=== PATIENT | female | born 1980 | race Caucasian/White ===

== ENCOUNTER 2020-10-19 21:31 | Emergency (ER) | payer OTHER ==
[~2020-10-19] VITALS: Ht 160 cm; Wt 103.0 kg
--- NOTE | 2020-10-19 22:27 | PHYS DOC ---
Past History Past Medical History: Depression, Other Past Surgical History: TURP Adult General Chief Complaint Chief Complaint: FEVER HPI HPI Patient is a 40-year-old female with a past medical history significant for breast cancer, currently on chemotherapy who presents to the emergency department at the request of her physician for fever. States that she checks her temperature twice a day, and this morning it was normal at the doctor's office and this evening it was 101. States she called her doctor back and was told to come to the emergency department. Denies headache, sore throat, runny nose, chest pain, shortness of breath, cough, abdominal pain, nausea, vomiting, diarrhea, dysuria, urinary frequency or urgency, hematuria or blood in the stool . States she actually feels well. Denies any known ill contacts or recent travel. Review of Systems Review of Systems Review of systems otherwise unremarkable except for noted in HPI. Allergies Allergies Allergies Coded Allergies Type Severity Reaction Last Updated Verified latex Allergy Unknown 03/21/15 No Physical Exam Physical Exam Constitutional: Well developed, well nourished, no acute distress, non-toxic appearance. [] HENT: Normocephalic, atraumatic, bilateral external ears normal, oropharynx moist, no oral exudates, nose normal. [] Eyes: conjunctiva normal, no discharge. [] Neck: Normal range of motion, no tenderness, supple, no stridor. [] Cardiovascular:Heart rate regular rhythm, no murmur [] Lungs & Thorax: Bilateral breath sounds clear to auscultation [] Abdomen: soft, no tenderness, no masses, no pulsatile masses. [] Skin: Warm, dry, no erythema, no rash. [] Back: No tenderness, Extremities: No tenderness, no cyanosis, no clubbing, ROM intact, no edema. [] Neurologic: Alert and oriented X 3, normal motor function, normal sensory function, no focal deficits noted. [] Psychologic: Affect normal, judgement normal, mood normal. [] Current Patient Data Lab Results Laboratory Tests Test 10/19/20 22:35 10/19/20 22:40 White Blood Count 2.1 x10^3/uL (4.0-11.0) Red Blood Count 3.60 x10^6/uL (3.50-5.40) Hemoglobin 10.2 g/dL (12.0-15.5) Hematocrit 30.7 % (36.0-47.0) Mean Corpuscular Volume 85 fL (79-100) Mean Corpuscular Hemoglobin 29 pg (25-35) Mean Corpuscular Hemoglobin Concent 33 g/dL (31-37) Red Cell Distribution Width 14.1 % (11.5-14.5) Platelet Count 239 x10^3/uL (140-400) Neutrophils (%) (Auto) 18 % (31-73) Lymphocytes (%) (Auto) 56 % (24-48) Monocytes (%) (Auto) 23 % (0-9) Eosinophils (%) (Auto) 2 % (0-3) Basophils (%) (Auto) 1 % (0-3) Neutrophils # (Auto) 0.4 x10^3uL (1.8-7.7) Lymphocytes # (Auto) 1.2 x10^3/uL (1.0-4.8) Monocytes # (Auto) 0.5 x10^3/uL (0.0-1.1) Eosinophils # (Auto) 0.0 x10^3/uL (0.0-0.7) Basophils # (Auto) 0.0 x10^3/uL (0.0-0.2) Segmented Neutrophils % 16 % (35-66) Band Neutrophils % 2 % (0-9) Lymphocytes % 57 % (24-48) Atypical Lymphocytes % (Manual) 12 % (0-0) Monocytes % 9 % (0-10) Basophils % 4 % (0-3) Nucleated Red Blood Cells 0 Platelet Estimate Adequate (ADEQUATE) Sodium Level 133 mmol/L (136-145) Potassium Level 3.5 mmol/L (3.5-5.1) Chloride Level 98 mmol/L (98-107) Carbon Dioxide Level 26 mmol/L (21-32) Anion Gap 9 (6-14) Blood Urea Nitrogen 7 mg/dL (7-20) Creatinine 0.7 mg/dL (0.6-1.0) Estimated GFR (Cockcroft-Gault) 92.7 BUN/Creatinine Ratio 10 (6-20) Glucose Level 153 mg/dL (70-99) Lactic Acid Level 1.1 mmol/L (0.4-2.0) Calcium Level 7.7 mg/dL (8.5-10.1) Total Bilirubin 0.8 mg/dL (0.2-1.0) Aspartate Amino Transf (AST/SGOT) 18 U/L (15-37) Alanine Aminotransferase (ALT/SGPT) 42 U/L (14-59) Alkaline Phosphatase 79 U/L (46-116) Total Protein 7.2 g/dL (6.4-8.2) Albumin 3.3 g/dL (3.4-5.0) Albumin/Globulin Ratio 0.8 (1.0-1.7) Urine Collection Type Void Urine Color Yellow Urine Clarity Hazy Urine pH 7.0 Urine Specific [place] 1.010 Urine Protein Neg (NEG-TRACE) Urine Glucose (UA) Neg mg/dL (NEG) Urine Ketones (Stick) Neg mg/dL (NEG) Urine Blood Mod (NEG) Urine Nitrite Neg (NEG) Urine Bilirubin Neg (NEG) Urine Urobilinogen Dipstick 0.2 mg/dL (0.2 mg/dL) Urine Leukocyte Esterase Neg (NEG) Urine RBC 1-2 /HPF (0-2) Urine WBC 0 /HPF (0-4) Urine Squamous Epithelial Cells Occ /LPF Urine Bacteria Few /HPF (0-FEW) EKG EKG [] Radiology/Procedures Radiology/Procedures []FINDINGS: 2 view of chest obtained. Left sided port with tip at the SVC. Cardiac silhouette unremarkable. No definite focal airspace consolidation. Mild degenerative changes spine. IMPRESSION: * No focal airspace consolidation or edema. Electronically signed by: Artis Uribe MD (10/19/2020 11:16 PM) [id number] Heart Score Risk Factors: Risk Factors: DM, Current or recent (<one month) smoker, HTN, HLP, family history of CAD, obesity. Risk Scores: Risk Factors: DM, Current or recent (<one month) smoker, HTN, HLP, family history of CAD, obesity. Course & Med Decision Making Course & Med Decision Making Patient is a 40-year-old female, with breast cancer currently on chemotherapy who presents to the emergency department with fever Vital signs notable for fever and tachycardia. Physical exam noted above. Given Tylenol Laboratory analysis notable for leukopenia but not neutropenic. Chest x-ray not concerning. Urine not concerning. [] Dragon Disclaimer Dragon Disclaimer This electronic medical record was generated, in whole or in part, using a voice recognition dictation system. Departure Departure: Referrals: PCP,SHABANA (PCP) ANNALISA GARCIA MD Oct 19, 2020 22:27
[2020-10-19 22:57] LABS: BASO % 1 % (0-3); EOS % 2 % (0-3); HEMATOCRIT 30.7 % (36.0-47.0); HEMOGLOBIN 10.2 g/dL (12.0-15.5); LYMPH # 1.2 x10^3/uL (1.0-4.8); LYMPH % 56 % (24-48); MEAN CORPUSCULAR HEMOGLOBIN 29 pg (25-35); MEAN CORPUSCULAR HGB CONC 33 g/dL (31-37); MEAN CORPUSCULAR VOLUME 85 fL (79-100); MONO # 0.5 x10^3/uL (0.0-1.1); MONO % 23 % (0-9); NEUT # 0.4 x10^3uL (1.8-7.7); NEUT % 18 % (31-73); PLATELET COUNT 239 x10^3/uL (140-400); RED CELL DISTRIBUTION WIDTH 14.1 % (11.5-14.5); WHITE BLOOD COUNT 2.1 x10^3/uL (4.0-11.0)
[2020-10-19 23:02] LABS: CALCIUM 7.7 mg/dL (8.5-10.1); CREATININE 0.7 mg/dL (0.6-1.0); GFR 92.7; POTASSIUM 3.5 mmol/L (3.5-5.1)
[2020-10-19 23:07] LABS: ALBUMIN 3.3 g/dL (3.4-5.0); ALBUMIN/GLOBULIN RATIO 0.8 (1.0-1.7); TOTAL BILIRUBIN 0.8 mg/dL (0.2-1.0); TOTAL PROTEIN 7.2 g/dL (6.4-8.2)
--- NOTE | 2020-10-19 23:19 | RAD ---
INDICATION: Reason: infection control, fever, on chemo for breast cancer / Spl. Instructions: / Hist ory: COMPARISON: March 2015 FINDINGS: 2 view of chest obtained. Left sided port with tip at the SVC. Cardiac silhouette unremarkable. No definite focal airspace consolidation. Mild degenerative changes spine. IMPRESSION: * No focal airspace consolidation or edema. Electronically signed by: Artis Uribe MD (10/19/2020 11:16 PM) [id number]
[2020-10-19 23:29] LABS: BACTERIA,URINE FEW /HPF (0-FEW); BILIRUBIN,URINE NEG (NEG); CLARITY,URINE HAZY; COLOR,URINE YELLOW; GLUCOSE,URINE NEG (NEG); NITRITE,URINE NEG (NEG); SQUAMOUS EPITHELIAL CELL,UR OCC /LPF; UROBILINOGEN,URINE 0.2 mg/dL (0.2 mg/dL); WBC,URINE 0 /HPF (0-4)
[2020-10-19 23:42] LABS: % ATYL 12 % (0-0); % BANDS 2 % (0-9); % BASOS 4 % (0-3); % LYMPHS 57 % (24-48); % MONOS 9 % (0-10); % SEGS 16 % (35-66); NUCLEATED RBC 0
[2020-10-19 23:43] LABS: PLT ESTIMATE ADEQUATE (ADEQUATE)
[2020-10-20] MEDS ORDERED: ACETAMINOPHEN 500 MG TABLET PO ONE (00:15)
[2020-10-20] MEDS ORDERED: CEFEPIME HCL 2 GM VIAL IV ONE (00:54)
[2020-10-20] MEDS ORDERED: IV NORMAL SALINE 100ML 100 ML ONE (00:55)
[2020-10-20 01:27] VITALS: BP 110/61
[2020-10-20] MEDS ORDERED: CEFEPIME HCL 2 GM in IV NORMAL SALINE 100ML 100 ML IV SCH (06:00)
== END 2020-10-20 01:35 | disposition short-term general hospital (02) ==
LOC: ER 21:31
DX: R50.9 Fever, unspecified (principal); R00.0 Tachycardia, unspecified; F32.9 Major depressive disorder, single episode, unspecified; Z85.3 Personal history of malignant neoplasm of breast; Z91.040 Latex allergy status
CPT/HCPCS: 36415; 71046; 80053; 81001; 83605; 85007; 85025; 87040; 96365; 99285; J0692